=== PATIENT | female | born 1985 | race African-American/Black ===

== ENCOUNTER 2017-08-12 12:48 | Emergency (ER) | payer OTHER ==
[2017-08-12] MEDS ORDERED: TETRACAINE 0.5% OPHTH SOLUTION 4ML BOTTLE. (13:38)
[2017-08-12] MEDS ORDERED: FLUORESCEIN OPHTH TEST STRIP. (13:38)
[2017-08-12] MEDS: TETRACAINE 0.5% OPHTH SOLUTION 4ML BOTTLE. OS (13:41)
[2017-08-12] MEDS: FLUORESCEIN OPHTH TEST STRIP. OD (13:42)
[2017-08-12] MEDS ORDERED: FLUORESCEIN 1MG EYE STRIP. OD (13:45)
[2017-08-12] MEDS: DIPHTH,PERTUSS(ACELL),TET TOX 0.5 ML DISP.SYRIN. VAX IM (13:46)
== END 2017-08-12 14:25 | disposition home or self-care (01) ==
LOC: ER 14:25
DX: H11.31 Conjunctival hemorrhage, right eye (principal); S00.81XA Abrasion of other part of head, initial encounter; Y08.89XA Assault by other specified means, initial encounter; Y93.89 Activity, other specified; Y99.8 Other external cause status; Y92.89 Other specified places as the place of occurrence of the external cause
CPT/HCPCS: 90471; 90715; 99283

== ENCOUNTER 2018-07-12 05:36 | Emergency (ER) | payer OTHER, SELFPAY ==
[~2018-07-12] VITALS: Ht 149.9 cm; Wt 83.5 kg
[~2018-07-12 05:36] MED LIST: ERYT1OIN6 OP
[2018-07-12 06:17] VITALS: BP 120/60
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
--- NOTE | 2018-07-12 07:25 | RAD ---
CT HEAD AND CERVICAL SPINE WO dated 07/12/2018 6:32 AM. Comparison: None. Clinical Indication: Pain after injury. HEAD AND NECK PAIN Technical factors: Contiguous 5 mm axial images of the head were obtained from the skullbase to the vertex. No contrast was administered. In addition, 3 mm axial images of the cervical spine were acquired with thin cut coronal and sagittal reconstructions. Findings head: Ventricles and sulci are within normal limits for age. No evidence of ventricular shift or mass effect. Brain parenchyma is of normal attenuation. There is no evidence of hemorrhage or extra-axial collection. Visualized paranasal sinuses and mastoid air cells are clear. No acute osseous abnormality. IMPRESSION HEAD: No evidence of acute intracranial abnormality. Findings cervical spine: Images were acquired from the skull base to mid T2. There is straightening of the normal cervical lordosis, otherwise sagittal alignment is anatomic. Vertebral body heights are maintained. No prevertebral soft tissue swelling. Posterior elements are intact. No fractures are identified. Mild endplate hypertrophic changes throughout. Mild multilevel uncovertebral spurring and facet arthropathy. No apparent focal disc herniation. Bony canal and foramina are adequate. Visualized soft tissue structures unremarkable. Limited images of lung apices are clear. IMPRESSION CERVICAL SPINE: 1. No evidence of fracture or malalignment. 2. Mild multilevel spondylosis. Electronically signed by: Tae Humphreys MD (07/12/2018 7:22 AM) [facility]
[2018-07-12] MEDS ORDERED: NAPR-683 PO (07:37)
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
== END 2018-07-12 07:45 | disposition home or self-care (01) ==
LOC: ER 05:36
DX: S16.1XXA Strain of muscle, fascia and tendon at neck level, initial encounter (principal); S83.8X2A Sprain of other specified parts of left knee, initial encounter; S09.8XXA Other specified injuries of head, initial encounter; Z98.890 Other specified postprocedural states; Z98.51 Tubal ligation status; V43.62XA Car passenger injured in collision with other type car in traffic accident, initial encounter; Y93.89 Activity, other specified; Y92.410 Unspecified street and highway as the place of occurrence of the external cause; Y99.8 Other external cause status
CPT/HCPCS: 70450; 72125; 73562; 99284

== ENCOUNTER 2018-09-09 07:40 | Emergency (ER) | payer SELFPAY ==
[~2018-09-09] VITALS: Ht 149.9 cm; Wt 816.9 kg
[~2018-09-09 07:40] MED LIST changes: +NAPR-683 PO
[2018-09-09 07:49] VITALS: BP 124/76
[2018-09-09] MEDS ORDERED: ORPHENADRINE CITRATE 60 MG/2 ML VIAL. IM ONE (08:15)
[2018-09-09] MEDS ORDERED: DEXAMETHASONE SOD PHOS 20 MG/5 ML VIAL. IM ONE (08:15)
[2018-09-09] MEDS ORDERED: METH-37 PO (08:22)
[2018-09-09] MEDS ORDERED: PRED20TA PO (08:22)
--- NOTE | 2018-09-09 08:22 | PHYS DOC ---
Past Medical History Past Medical History: No Pertinent History Past Surgical History: Tubal ligation Alcohol Use: None Drug Use: Marijuana Adult General Chief Complaint Chief Complaint: [facility] HPI Patient is a 33-year-old female who presents with pain in her neck that radiates down into her left arm. She states this started yesterday after she woke from a nights sleep. She states now any time she moves her head exacerbates the pain down into her left arm. She denies any weakness. She denies any blunt trauma to the area. She denies any bowel or bladder dysfunction. She denies any problem moving her leg. She denies headache.[] Review of Systems Review of Systems Constitutional: Denies fever or chills [] Eyes: Denies change in visual acuity, redness, or eye pain [] HENT: Denies nasal congestion or sore throat [] Respiratory: Denies cough or shortness of breath [] Cardiovascular: No additional information not addressed in HPI [] GI: Denies abdominal pain, nausea, vomiting, bloody stools or diarrhea [] : Denies dysuria or hematuria [] Musculoskeletal: Per history of present illness[] Integument: Denies rash or skin lesions [] Neurologic: Describes pain down her left arm[] Endocrine: Denies polyuria or polydipsia [] All other systems were reviewed and found to be within normal limits, except as documented in this note. Current Medications Current Medications Current Medications Medications (Trade) Dose Ordered Sig/[facility] Start Time Stop Time Status Last Admin Dose Admin Dexamethasone Sodium Phosphate (Decadron) 15 mg 1X ONCE 09/09/18 08:15 09/09/18 08:16 DC Orphenadrine Citrate (Norflex) 60 mg 1X ONCE 09/09/18 08:15 09/09/18 08:16 DC Allergies Allergies Allergies Coded Allergies Type Severity Reaction Last Updated Verified naproxen Allergy Intermediate Hives 09/09/18 Yes Physical Exam Physical Exam Constitutional: Well developed, well nourished, mild distress, non-toxic appearance. [] HENT: Normocephalic, atraumatic, bilateral external ears normal, oropharynx moist, no oral exudates, nose normal. [] Eyes: PERRLA, EOMI, conjunctiva normal, no discharge. [] Neck: Decreased range of motion secondary to pain symptoms are reproduced with compression and side bending left. [] Cardiovascular:Heart rate regular rhythm, no murmur [] Lungs & Thorax: Bilateral breath sounds clear to auscultation [] Abdomen: Bowel sounds normal, soft, no tenderness, no masses, no pulsatile masses. [] Skin: Warm, dry, no erythema, no rash. [] Back: No tenderness, no CVA tenderness. 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 [] Psychologic: Affect normal, judgement normal, mood normal. [] Current Patient Data Vital Signs Vital Signs Date Time Temp Pulse Resp B/P (MAP) Pulse Ox O2 Delivery O2 Flow Rate FiO2 09/09/18 07:49 97.8 77 18 124/76 (92) 99 Room Air 97.8 EKG EKG [] Radiology/Procedures Radiology/Procedures [] Course & Med Decision Making Course & Med Decision Making Pertinent Labs and Imaging studies reviewed. (See chart for details) [ED course: Evaluation reveals a 33-year-old female with cervical radiculopathy. She was given Decadron and Norflex during her stay in the department. I've instructed her that she will likely need to follow with her primary care physician to have an MRI scan scheduled should her symptoms continue past the next several days. Patient is safe for discharge home at this time.] Dragon Disclaimer Dragon Disclaimer This electronic medical record was generated, in whole or in part, using a voice recognition dictation system. Departure Departure Impression: Primary Impression: Cervical radiculopathy, acute Disposition: 01 HOME, SELF-CARE Condition: STABLE Referrals: NO PCP (PCP) Patient Instructions: Cervical Radiculopathy Additional Instructions: Take medication as directed. Return to the emergency department with any new or concerning symptoms Scripts Methocarbamol (ROBAXIN) 500 Mg Tablet 1 TAB PO Q8HRS for muscle spasm, #30 TAB Prov: CANDICE DC DO 09/09/18 Prednisone (PREDNISONE) 20 Mg Tablet 2 TAB PO DAILY PRN for COUGH, #14 TAB Prov: CANDICE DC DO 09/09/18 CANDICE DC DO Sep 09, 2018 08:22
== END 2018-09-09 08:37 | disposition home or self-care (01) ==
LOC: ER 07:40
DX: M54.12 Radiculopathy, cervical region (principal); Z88.5 Allergy status to narcotic agent
CPT/HCPCS: 96372; 99284; J1100; J2360